=== PATIENT | male | born 1980 | race Caucasian/White ===

== ENCOUNTER 2017-10-25 12:12 | Emergency (ER) | payer OTHER ==
[~2017-10-25] VITALS: Ht 170.2 cm; Wt 76.2 kg
[2017-10-25 12:18] VITALS: BP 122/70
[2017-10-25 12:35] LABS: BASOPHILS % (AUTO) 0 % (0-1); EOSINOPHILS # (AUTO) 0.01 x10^3/uL (0-0.4); EOSINOPHILS % (AUTO) 0 % (1-7); LYMPHOCYTES # (AUTO) 0.82 x10^3/uL (1-3.4); LYMPHOCYTES % (AUTO) 6 % (22-44); MD NO; MEAN CORPUSCULAR HEMOGLOBIN 30.2 pg (27.5-34.5); MEAN CORPUSCULAR HGB CONC 34.2 g/dL (33.2-36.2); MEAN CORPUSCULAR VOLUME 88.4 fL (81-97); MEAN PLATELET VOLUME 6.7 fL (7.4-10.4); MONOCYTES # (AUTO) 0.28 x10^3/uL (0.2-0.8); MONOCYTES % (AUTO) 2 % (2-9); NEUTROPHILS # (AUTO) 12.61 x10^3/uL (1.8-6.8); NEUTROPHILS % (AUTO) 92 % (42-75); PLATELET COUNT 276 x10^3/uL (130-400); RED BLOOD COUNT 5.46 x10^6/uL (4.38-5.82); RED CELL DISTRIBUTION WIDTH 13.1 % (9.4-14.8)
[2017-10-25 12:48] LABS: ALANINE AMINOTRANSFERASE 28 U/L (12-78); ALBUMIN 4.4 g/dL (3.4-5.0); ANION GAP 7 mmol/L (5-15); CALCIUM 9.3 mg/dL (8.5-10.1); CHLORIDE 108 mmol/L (98-107); CREATININE 1.12 mg/dL (0.7-1.3)
[2017-10-25 12:49] LABS: ALKALINE PHOSPHATASE 72 U/L (45-117); BILIRUBIN,TOTAL 0.5 mg/dL (0.2-1.0); TOTAL PROTEIN 8.3 g/dL (6.4-8.2)
[2017-10-25] MEDS ORDERED: ONDANSETRON ODT 4 MG ONE (13:42)
[2017-10-25 13:54] LABS: MICROSCOPIC NOT IND
[2017-10-25 13:59] LABS: CULTURE INDICATED? NO
[2017-10-25] MEDS ORDERED: ONDANSETRON ODT 4 MG PO ONE (14:00)
== END 2017-10-25 15:06 | disposition home or self-care (01) ==
LOC: ED 14:09
DX: R11.2 Nausea with vomiting, unspecified (principal); R30.0 Dysuria; R10.9 Unspecified abdominal pain
CPT/HCPCS: 36415; 71046; 80053; 81003; 83690; 85025; 99285; Q0162